=== PATIENT | male | born 1975 | race Caucasian/White ===

== ENCOUNTER 2019-03-14 10:13 | Inpatient (IN) | payer BC, OTHER ==
[2019-03-14] MEDS ORDERED: METOPROLOL TARTRATE 5 MG/5 ML INJ IV ONE ×2 (10:44→11:45)
[2019-03-14] MEDS ORDERED: METOPROLOL TAR 50 MG TAB ONE (10:44)
[2019-03-14 11:02] LABS: Absolute Lymphocytes (CBC) 1.3 K/uL (0.7-4.9); Basophils % 0.8 % (0-1.3); Hematocrit 47.6 % (39.6-49.0); Lymphocytes % 17.3 % (15.3-44.8); RBC Red Blood Cell Count 4.78 M/uL (4.33-5.43)
[2019-03-14 11:09] LABS: Protime INR 1.05
[2019-03-14 11:20] LABS: BUN Blood Urea Nitrogen 9 mg/dL (7-18); Bicarbonate 26 mmol/L (21-32); Glucose Level 89 mg/dL (74-106); Magnesium 2.4 mg/dL (1.8-2.4); NT PRO-BNP 1028 pg/mL (<125); Potassium 3.9 mmol/L (3.5-5.1); Sodium Level 141 mmol/L (136-145); Troponin (Emerg Dept Use Only) < 0.02 ng/mL (0.0-0.045)
[2019-03-14] MEDS ORDERED: ENOXAPARIN 100 MG/ML SYR SQ ONE (11:23)
[2019-03-14] MEDS ORDERED: ENOXAPARIN 30 MG/0.3 ML SQ ONE (11:24)
--- NOTE | 2019-03-14 11:33 | RAD REPORT ---
EXAM DESCRIPTION: [place] Single View03/14/2019 11:13 am CLINICAL HISTORY: Palpitations COMPARISON: 2014 FINDINGS: The lungs appear clear of acute infiltrate. The heart is mildly enlarged IMPRESSION: No acute abnormalities displayed
--- NOTE | 2019-03-14 11:58 | EDPHYS ---
Physician Documentation [facility] Name: Spenser Henriquez Age: 44 yrs Sex: Male : 1975 Arrival Date: 03/14/2019 Time: 10:15 Bed 15 Private MD: ED Physician Bucky Stinson HPI: 03/14 11:15 This 44 yrs old Male presents to ER via Ambulatory with complaints of heart rn racing. 11:15 The patient presents with a history of irregular heart beat, heart racing. Context: The rn symptoms occur at rest. Onset: The symptoms/episode began/occurred 3 day(s) ago. Modifying factors: The symptoms are aggravated by nothing. The symptoms are alleviated by nothing. Severity of symptoms: At their worst the symptoms were moderate in the emergency department the symptoms are unchanged. The patient has not experienced similar symptoms in the past. Reports noticed irregular heart rate and palpitations that began 3 days ago, mild sob, and fatigue. No known medical problems, doesn't take meds, never happened before. NO chest pain.. Historical: - Allergies: 10:20 No Known Allergies; la1 - Home Meds: 10:20 None [Active]; la1 - PMHx: 10:20 Hypertension; la1 - PSHx: 10:20 gastric sleeve; la1 - Immunization history:: Adult Immunizations up to date. - Social history:: Smoking status: Patient/guardian denies using tobacco. - Ebola Screening: : No symptoms or risks identified at this time. - Family history:: not pertinent. - Hospitalizations: : No recent hospitalization is reported. ROS: 11:15 Constitutional: Negative for fever, chills, and weight loss, Eyes: Negative for injury, rn pain, redness, and discharge, Neck: Negative for injury, pain, and swelling, Cardiovascular: Negative for chest pain, and edema, Respiratory: Negative for cough, wheezing, and pleuritic chest pain, Abdomen/GI: Negative for abdominal pain, nausea, vomiting, diarrhea, and constipation, MS/Extremity: Negative for injury and deformity, Skin: Negative for injury, rash, and discoloration, Neuro: Negative for headache, numbness, tingling, and seizure. Exam: 11:23 Constitutional: Overweight male, no acute distress Head/Face: Normocephalic, rn atraumatic. Eyes: Pupils equal round and reactive to light, extra-ocular motions intact. Lids and lashes normal. Conjunctiva and sclera are non-icteric and not injected. Cornea within normal limits. Periorbital areas with no swelling, redness, or edema. ENT: MMM Cardiovascular: Irregular rhythm, tachycardic, no murmur Respiratory: Lungs have equal breath sounds bilaterally, clear to auscultation. No increased work of breathing, no retractions or nasal flaring. Abdomen/GI: soft, non-tender MS/ Extremity: Pulses equal, no cyanosis. Neurovascular intact. Full, normal range of motion. Equal circumference. Neuro: Awake and alert, GCS 15, oriented to person, place, time, and situation. Cranial nerves II-XII grossly intact. Motor strength 5/5 in all extremities. Sensory grossly intact. Cerebellar exam normal. Vital Signs: 10:22 Pulse 155; Resp 16; Temp 98.0; Pulse Ox 98% on R/A; Weight 127.01 kg; Height 6 ft. 0 la1 in. (182.88 cm); 10:23 BP 136 / 100; la1 10:28 BP 144 / 117; Pulse 179; Resp 18; Temp 98.1(TE); Pulse Ox 97% on R/A; hj 10:42 BP 133 / 108; Pulse 158; Resp 18; Pulse Ox 100% on R/A; hj 10:50 BP 131 / 100; Pulse 135; Resp 18; Pulse Ox 100% on R/A; hj 11:06 BP 130 / 99; Pulse 149; Resp 18; Pulse Ox 100% on R/A; hj 11:29 BP 129 / 90; Pulse 148; Resp 18; Pulse Ox 100% on R/A; hj 11:41 BP 117 / 98; Pulse 135; Resp 18; Pulse Ox 100% on R/A; hj 11:47 BP 121 / 92; Pulse 130; Resp 18; Pulse Ox 100% on R/A; hj 12:48 BP 118 / 95; Pulse 142; Resp 18; Pulse Ox 98% on R/A; hj 13:41 BP 124 / 66; Pulse 142; Resp 18; Pulse Ox 96% on R/A; hj 10:22 Body Mass Index 37.97 (127.01 kg, 182.88 cm) la1 MDM: 10:28 Patient medically screened. rn 11:55 Differential diagnosis: arrythmia, afib with rvr. Data reviewed: vital signs, nurses rn notes, lab test result(s), EKG, radiologic studies, plain films, and as a result, I will admit patient. Counseling: I had a detailed discussion with the patient and/or guardian regarding: the historical points, exam findings, and any diagnostic results supporting the discharge/admit diagnosis, lab results, radiology results, the need for further work-up and treatment in the hospital. Response to treatment: the patient's symptoms have mildly improved after treatment, and as a result, I will admit patient. Admission orders: after a detailed discussion of the patient's condition and case, the admit orders are written by me. ED course: Pt with some improvement of HR down to 120s, from 170s, will admit for further rate control and cardiology consult. 03/14 10:41 Order name: Basic Metabolic Panel; Complete Time: : rn 03/14 10:41 Order name: CBC with Diff; Complete Time: rn 03/14 10:41 Order name: Magnesium; Complete Time: rn 03/14 10:41 Order name: NT PRO-BNP; Complete Time: rn 03/14 10:41 Order name: PT-INR; Complete Time: rn 03/14 10:41 Order name: Troponin (emerg Dept Use Only); Complete Time: rn 03/14 10:41 Order name: XRAY Chest (1 view); Complete Time: 11:38 rn 03/14 10:41 Order name: TSH; Complete Time: rn 03/14 10:41 Order name: T4 Free; Complete Time: rn 03/14 12:47 Order name: CT Head Brain wo Cont rn 03/14 13:22 Order name: CT EDMS 03/14 10:41 Order name: EKG; Complete Time: 10: rn 03/14 10:41 Order name: Cardiac monitoring; Complete Time: : rn 03/14 10:41 Order name: EKG - Nurse/Tech; Complete Time: 10: rn 03/14 10:41 Order name: IV Saline Lock; Complete Time: : rn 03/14 10:41 Order name: Labs collected and sent; Complete Time: : rn 03/14 10:41 Order name: O2 Per Protocol; Complete Time: 10:42 rn 03/14 10:41 Order name: O2 Sat Monitoring; Complete Time: 10:42 rn Administered Medications: 10:42 Drug: Lopressor 5 mg Route: IVP; Site: right antecubital; hj 10:42 Drug: Lopressor (metoprolol TARTRATE) 50 mg Route: PO; hj 11:29 Follow up: Response: No adverse reaction hj 10:50 Drug: Lopressor 5 mg Route: IVP; Site: right antecubital; hj 11:02 Drug: Lopressor 5 mg Route: IVP; Site: right antecubital; hj 11:29 Follow up: Response: No adverse reaction hj 11:20 Drug: Lovenox 1 mg/kg Route: Sub-Q; Site: abdomen; hj 11:34 Follow up: Response: No adverse reaction hj 11:43 Drug: Lopressor 5 mg Route: IVP; Site: right antecubital; hj 12:29 Follow up: Response: No adverse reaction hj 12:25 Drug: Zofran 4 mg Route: IVP; Site: right antecubital; hj 12:29 Follow up: Response: No adverse reaction hj 12:25 Drug: morphine 4 mg Route: IVP; Site: right antecubital; hj 12:30 Follow up: Response: No adverse reaction; Pain is decreased hj 12:48 Drug: Betapace 80 mg Route: PO; hj 12:51 Follow up: Response: No adverse reaction hj Disposition: 03/14/19 11:56 Hospitalization ordered by Isiah Borrego for Inpatient Admission. Preliminary diagnosis are Persistent atrial fibrillation, Atrial fibrillation with RVR. - Bed requested for Intensive Care Unit. - Status is Inpatient Admission. hj - Condition is Stable. - Problem is new. - Symptoms have improved. UTI on Admission? No Critical care time excluding procedures: 11:55 Critical care time: Bedside Care: 25 minutes, Family Intervention: 5 minutes. Total rn time: 30 minutes Signatures: Dispatcher [employer] EDEliana Alexander Roman, MD MD rn Attema, Lee, RN RN la1 Shade Mancilla RN RN hj Corrections: (The following items were deleted from the chart) 13:37 11:56 Hospitalization Ordered by Isiah Borrego DO for Inpatient Admission. Preliminary bd diagnosis is Persistent atrial fibrillation; Atrial fibrillation with RVR. Bed requested for Telemetry/MedSurg (Inpatient). Status is Inpatient Admission. Condition is Stable. Problem is new. Symptoms have improved. UTI on Admission? No. rn 14:32 13:37 03/14/2019 11:56 Hospitalization Ordered by Isiah Borrego DO for Inpatient hj Admission. Preliminary diagnosis is Persistent atrial fibrillation; Atrial fibrillation with RVR. Bed requested for Intensive Care Unit. Status is Inpatient Admission. Condition is Stable. Problem is new. Symptoms have improved. UTI on Admission? No. bd
--- NOTE | 2019-03-14 11:58 | ER ---
Nurse's Notes [facility] Name: Spenser Henriquez Age: 44 yrs Sex: Male : 1975 Arrival Date: 03/14/2019 Time: 10:15 Bed 15 Private MD: Diagnosis: Persistent atrial fibrillation;Atrial fibrillation with RVR Presentation: 03/14 10:20 Presenting complaint: Patient states: I have been having some pain and swelling under la1 my tongue, they did and EKG and it was abnormal so they sent me here, pt states having palpitations and fatigue at home. Transition of care: patient was not received from another setting of care. Onset of symptoms was March 14, 2019. Risk Assessment: Do you want to hurt yourself or someone else? Patient reports no desire to harm self or others. Initial Sepsis Screen: Does the patient meet any 2 criteria? No. Patient's initial sepsis screen is negative. Does the patient have a suspected source of infection? No. Patient's initial sepsis screen is negative. Care prior to arrival: None. 10:20 Method Of Arrival: Ambulatory la1 10:20 Acuity: DENAE 2 la1 Triage Assessment: 10:29 General: Appears in no apparent distress. uncomfortable, Behavior is calm, cooperative, hj appropriate for age. Pain: Complains of pain in chest. Historical: - Allergies: 10:20 No Known Allergies; la1 - Home Meds: 10:20 None [Active]; la1 - PMHx: 10:20 Hypertension; la1 - PSHx: 10:20 gastric sleeve; la1 - Immunization history:: Adult Immunizations up to date. - Social history:: Smoking status: Patient/guardian denies using tobacco. - Ebola Screening: : No symptoms or risks identified at this time. - Family history:: not pertinent. - Hospitalizations: : No recent hospitalization is reported. Screenin:28 Abuse screen: Denies threats or abuse. Denies injuries from another. Nutritional hj screening: No deficits noted. Tuberculosis screening: No symptoms or risk factors identified. Fall Risk None identified. Assessment: 10:19 General: Appears in no apparent distress. uncomfortable, Behavior is calm, cooperative, hj appropriate for age. Pain: Complains of pain in chest Pain radiates to back and left arm. Neuro: Level of Consciousness is awake, alert, obeys commands, Oriented to person, place, time, situation, Appropriate for age. Cardiovascular: Capillary refill < 3 seconds Patient's skin is warm and dry. Respiratory: Airway is patent Respiratory effort is even, unlabored, Respiratory pattern is regular, symmetrical. GI: No signs and/or symptoms were reported involving the gastrointestinal system. : No signs and/or symptoms were reported regarding the genitourinary system. EENT: No signs and/or symptoms were reported regarding the EENT system. Derm: No signs and/or symptoms reported regarding the dermatologic system. Musculoskeletal: No signs and/or symptoms reported regarding the musculoskeletal system. 11:19 Reassessment: Patient and/or family updated on plan of care and expected duration. Pain hj level reassessed. Patient is alert, oriented x 3, equal unlabored respirations, skin warm/dry/pink. awaiting results and POC:. 12:00 Reassessment: complaints of pain; MD notified with orders;. hj 13:41 Reassessment: Patient and/or family updated on plan of care and expected duration. Pain hj level reassessed. Patient is alert, oriented x 3, equal unlabored respirations, skin warm/dry/pink. awaiting for room placement;. Vital Signs: 10:22 Pulse 155; Resp 16; Temp 98.0; Pulse Ox 98% on R/A; Weight 127.01 kg; Height 6 ft. 0 la1 in. (182.88 cm); 10:23 BP 136 / 100; la1 10:28 BP 144 / 117; Pulse 179; Resp 18; Temp 98.1(TE); Pulse Ox 97% on R/A; hj 10:42 BP 133 / 108; Pulse 158; Resp 18; Pulse Ox 100% on R/A; hj 10:50 BP 131 / 100; Pulse 135; Resp 18; Pulse Ox 100% on R/A; hj 11:06 BP 130 / 99; Pulse 149; Resp 18; Pulse Ox 100% on R/A; hj 11:29 BP 129 / 90; Pulse 148; Resp 18; Pulse Ox 100% on R/A; hj 11:41 BP 117 / 98; Pulse 135; Resp 18; Pulse Ox 100% on R/A; hj 11:47 BP 121 / 92; Pulse 130; Resp 18; Pulse Ox 100% on R/A; hj 12:48 BP 118 / 95; Pulse 142; Resp 18; Pulse Ox 98% on R/A; hj 13:41 BP 124 / 66; Pulse 142; Resp 18; Pulse Ox 96% on R/A; hj 10:22 Body Mass Index 37.97 (127.01 kg, 182.88 cm) la1 ED Course: 10:15 Patient arrived in ED. cf2 10:20 Arm band placed on right wrist. la1 10:21 Triage completed. la1 10:24 Shade Mancilla, AARON is Primary Nurse. hj 10:28 Bucky Stinson MD is Attending Physician. rn 10:29 Patient has correct armband on for positive identification. Placed in gown. Bed in low hj position. Call light in reach. Side rails up X 1. 10:41 EKG done, by technicians and trades workers. reviewed by Bucky Stinson MD. sm3 10:41 No provider procedures requiring assistance completed. Initial lab(s) drawn, by wi, hj sent to lab. Inserted saline lock: 18 gauge in right antecubital area, using aseptic technique. Blood collected. 11:07 X-ray completed. Portable x-ray completed in exam room. Patient tolerated procedure sw well. 11:12 XRAY Chest (1 view) In Process Unspecified. EDMS 11:56 Isiah Borrego DO is Hospitalizing Provider. rn Administered Medications: 10:42 Drug: Lopressor 5 mg Route: IVP; Site: right antecubital; hj 10:42 Drug: Lopressor (metoprolol TARTRATE) 50 mg Route: PO; hj 11:29 Follow up: Response: No adverse reaction hj 10:50 Drug: Lopressor 5 mg Route: IVP; Site: right antecubital; hj 11:02 Drug: Lopressor 5 mg Route: IVP; Site: right antecubital; hj 11:29 Follow up: Response: No adverse reaction hj 11:20 Drug: Lovenox 1 mg/kg Route: Sub-Q; Site: abdomen; hj 11:34 Follow up: Response: No adverse reaction hj 11:43 Drug: Lopressor 5 mg Route: IVP; Site: right antecubital; hj 12:29 Follow up: Response: No adverse reaction hj 12:25 Drug: Zofran 4 mg Route: IVP; Site: right antecubital; hj 12:29 Follow up: Response: No adverse reaction 12:25 Drug: morphine 4 mg Route: IVP; Site: right antecubital; 12:30 Follow up: Response: No adverse reaction; Pain is decreased 12:48 Drug: Betapace 80 mg Route: PO; 12:51 Follow up: Response: No adverse reaction Outcome: 11:56 Decision to Hospitalize by Provider. rn 13:51 Admitted to ICU accompanied by nurse, accompanied by tech, family with patient, via stretcher, room 1, on monitor, Report called to AARON Andrade 13:51 Condition: stable 13:51 Instructed on the need for admit, Demonstrated understanding of instructions. 14:32 Patient left the ED. Signatures: Dispatcher [employer] EDBucky Sanders MD MD rn Attema, Lee, RN RN la1 Warren, Shannon sw Joaquin, Henry, RN RN hj Montes, Shakira 3 Emmanuel Calles 2
[2019-03-14] MEDS ORDERED: MORPHINE 4 MG/ML SYR ONE (12:24)
[2019-03-14] MEDS ORDERED: ONDANSETRON 4 MG/2 ML VIAL ONE (12:24)
[2019-03-14] MEDS ORDERED: SOTALOL HCL 80 MG TAB ONE (12:49)
--- NOTE | 2019-03-14 13:11 | P.HP ---
Certification for Inpatient Patient admitted to: Inpatient With expected LOS: >2 Midnights Patient will require the following post-hospital care: None Practitioner: I am a practitioner with admitting privileges, knowledge of patient current condition, hospital course, and medical plan of care. Services: Services provided to patient in accordance with Admission requirements found in Title 42 Section 412.3 of the Code of Federal Regulations Patient History Date of Service: 03/14/19 Primary Care Provider: Dr. Benito Reason for admission: Palpitations, left facial numbness History of Present Illness: 44-year-old male presented to the emergency room with palpitations and left facial numbness. Patient reports he started to have palpitations 3 days ago. It was associated with some shortness of breath and chest pressure. Patient also reported some left facial numbness. Patient denies any slurred speech. Denies upper and lower extremity weakness. He had gone to a [place] on Tuesday. He felt very tired thereafter. He was seen by his PCP today. After his evaluation , He was sent to the ER for further evaluation. Patient has reported some palpitations over the past 6 months. Patient with history of hypertension but does not take any medication regularly. Other medical problems include obstructive sleep apnea, former tobacco use, alcohol use, and GERD. In the ER patient evaluated. Patient was found to have atrial fibrillation with RVR. Rate was around 180. Patient received several doses of Lopressor with improvement of heart rate to about 130. CBC, BMP unremarkable. Initial cardiac enzymes negative. BNP 1200 tsh and free T4 within normal range. Chest x-ray unremarkable. Patient admitted to ICU for further evaluation and treatment. When I saw the patient in the ER, heart rate around 130. Patient does not appear to be any significant distress. Case discussed with cardiology. Will start Betapace and anti coagulation therapy. Will order CT head due to left facial weakness. Home medications list reviewed: Yes - Past Medical/Surgical History Diabetic: No -: Hypertension -: Former tobacco use -: Alcohol use -: GERD -: Obstructive sleep apnea -: History of gastric sleeve -: Obesity -: Gastric sleeve -: Cholecystectomy Psychosocial/ Personal History: Patient has a girlfriend. He has 3 children. He works at [employer]. - Family History Father -: Heart disease, Hypertension, Other (see notes) (History of CABG with pacemaker) Mother -: Other (see notes) (Anxiety) - Social History Smoking Status: Former smoker Alcohol use: Yes CD- Drugs: No Caffeine use: Yes Place of Residence: Home Review of Systems General: Weakness, Malaise, As per HPI Eyes: Unremarkable ENT: Unremarkable Respiratory: Shortness of Breath, As per HPI Cardiovascular: Chest Pain, Palpitations, Edema, As per HPI Gastrointestinal: Unremarkable Genitourinary: Unremarkable Musculoskeletal: Pedal edema, As per HPI Integumentary: Unremarkable Neurological: Weakness, Numbness, As per HPI Lymphatics: Unremarkable Physical Examination - Physical Exam General: Alert, In no apparent distress, Oriented x3, Cooperative HEENT: Atraumatic, Normocephalic, PERRLA, Mucous membr. moist/pink, Other ( Patient reports numbness to the left side of the face.) Neck: Supple, No Thyromegaly Respiratory: Clear to auscultation bilaterally, Normal air movement Cardiovascular: Irregular heart rate/rhythm (Atrial fibrillation with rate around 130) Gastrointestinal: Normal bowel sounds, Soft and benign, Non-distended, No tenderness, No masses, No rebound, No guarding Musculoskeletal: No erythema, No tenderness, No warmth Integumentary: No erythema, No warmth, No cyanosis, Tenderness/swelling (1+ pitting edema to the lower extremities) Neurological: Normal speech, Normal strength at 5/5 x4 extr, Normal tone, Normal affect - Studies Laboratory Data (last 24 hrs) 03/14/19 10:42: PT 12.4, INR 1.05 03/14/19 10:42: WBC 7.7, Hgb 15.9, Hct 47.6, Plt Count 257 03/14/19 10:42: Sodium 141, Potassium 3.9, BUN 9, Creatinine 0.91, Glucose 89, Magnesium 2.4 Assessment and Plan - Plan Impression: Palpitations and left facial numbness secondary to new onset atrial fibrillation with RVR Hypertension GERD Alcohol use Former tobacco use Obstructive sleep apnea Obesity with history of gastric sleeve Plan: Palpitations and left facial numbness secondary to new onset atrial fibrillation with RVR: Patient will be admitted to ICU. Case discussed at length with cardiology. Will start Betapace 80 mg twice daily. Will also start anti coagulation therapy-Lovenox at 1 milligram/kilogram subcu twice daily. Will order echocardiogram further evaluate. Will also order carotid Doppler, CT head, stroke protocol MRI due to his left facial numbness. Will continue monitor on telemetry and cardiac enzymes. Hopefully patient will convert on Betapace. Cardiology will consider cardioversion tomorrow if patient remains in atrial fibrillation. Anticipate discharge in the next 48 hr pending clinical improvement and clearance by Cardiology. Hypertension: Will need to monitor closely. Patient on Betapace. Patient previously taking medication but not on a regular basis. GERD: Will start Protonix. Alcohol use: Alcohol cessation education will be provided. Former tobacco use: Continue tobacco cessation. Obstructive sleep apnea: Patient should have repeat sleep study as an outpatient to further evaluate. Obesity with history of gastric sleeve: Will calculate BMI. Will address lifestyle modification education. Discharge Plan: Home Plan to discharge in: 72 Hours - Advance Directives Does patient have a Living Will: No Does patient have a Durable POA for Healthcare: No - Code Status/Comfort Care Code Status Assessed: Yes (Patient is full code) Time Spent Managing Pts Care (In Minutes): 65
--- NOTE | 2019-03-14 13:13 | RAD REPORT ---
EXAM DESCRIPTION: CT - Head Brain Wo Cont - 03/14/2019 1:00 pm CLINICAL HISTORY: afib, paresthesias COMPARISON: No comparisons TECHNIQUE: All CT scans are performed using dose optimization technique as appropriate and may inclu de automated exposure control or mA/KV adjustment according to patient size. FINDINGS: No intracranial hemorrhage, hydrocephalus or extra-axial fluid collection.No areas of brai n edema or evidence of midline shift. Prominent rounded soft tissue density lesion within sphenoid sinuses noted measuring 2.4 cm The shira rium is intact. IMPRESSION: No acute intracranial abnormality. 2.4 cm soft tissue attenuation lesion in the right aspect of the sphenoid sinus may represent a mucoc venkatesh.
[2019-03-14] MEDS ORDERED: ACETAMINOPHEN 650MG/RECT SUPP PR PRN (13:59)
[2019-03-14] MEDS ORDERED: ACETAMINOPHEN 500 MG TAB PO PRN (13:59)
[2019-03-14] MEDS ORDERED: ONDANSETRON 4 MG/2 ML VIAL IV PRN (13:59)
--- NOTE | 2019-03-14 14:52 | EKG ---
Test Date: 2019-03-14 Test Time: 10:31:58 Branch Employment Coordinator: NETTIE-Will MEASUREMENT RESULTS: Intervals: Rate: 146 MN: QRSD: 84 QT: 302 QTc: 470 [place]: P: MN: QRS: 60 T: 28 INTERPRETIVE STATEMENTS: Atrial fibrillation with rapid ventricular response Abnormal ECG No previous ECG available for comparison Electronically Signed On 03-14-19 14:51:47 CDT by Khanh Barrios
[2019-03-14] MEDS ORDERED: NITROGLYCERIN 0.4 MG/TAB SL PRN (16:53)
[2019-03-14] MEDS: MORPHINE 2 MG/ML SYR IV PRN ×2 (17:06→22:54)
[2019-03-14] MEDS: SOTALOL HCL 80 MG TAB PO SCH (17:11)
[2019-03-14] MEDS ORDERED: SOTALOL HCL 80 MG TAB PO SCH (18:00)
--- NOTE | 2019-03-14 19:45 | CON ---
Reason For Consult: Atrial fibrillation. History Of Present Illness: Mr. Henriquez is a 44. He has been feeling ill for several weeks, perhaps m onths. He has gained about 20 pounds, has a new job and has felt his heart racing, had sweating spel ls, lightheaded spells. He went to see the doctor because the area under his tongue felt irritated. Vital signs were taken. His heart rate was in the 150s. It was irregular. He was hypertensive and he was sent to the ER there. There, he was found to be in atrial fib. Mr. Henriquez has not had atrial fib before. He has no history of diabetes, hypertension, or dyslipidemia. He takes no home medicat ions. He reports no allergies. He uses tobacco. He uses [place] over [place]. He had a gastric s leeve surgery about a decade ago. He went from 280 down to about 250, now his weight is 276. Physical Examination: Vital Signs: He is 6 feet tall, 276 pounds. HEENT: Normal. Lungs: Clear. Heart: Rapid, very irregular heart beat, heart rate right at 150. Neck: Carotids, no bruit. Extremities: Palpable distal pulses. Mild edema. No cyanosis or clubbing. Diagnostic Studies: His electrocardiogram shows atrial fib, heart rate 146. No old EKGs. Impression: The patient has probably been in atrial fibrillation for several weeks, if not months, a nd doing an emergency cardioversion would put him at significant risk of a stroke. We need to fully anticoagulate him, give him enough beta blockers so that his heart rate slows, then he could resume o utpatient life and wait 3 weeks and undergo a cardioversion or alternatively go up to [facility] where the transesophageal echocardiogram could be done and a cardioversion if it is negative for le ft atrial appendage thrombus. At some point, he should have an echo and stress test. I would rather see the echocardiogram done when his heart rate is a little slower than to do it emergently right no w. We will increase his Betapace to 120 b.i.d. Continue enoxaparin and we will see what shape he is in tomorrow, perhaps he could be discharged for outpatient care. EDDIE/LAURA Voice ID: [id number] Report ID: [id number]
[2019-03-14 19:55] LABS: CKMB Creatine Kinase MB 1.5 ng/mL (0.3-3.6); Creatine Phosphokinase 96 U/L (39-308); Troponin I < 0.02 ng/mL (0.0-0.045)
--- NOTE | 2019-03-14 20:10 | RAD REPORT ---
EXAM DESCRIPTION: USCarotid Artery Bilateral03/14/2019 4:02 pm CLINICAL HISTORY: Numbness COMPARISON: None FINDINGS: The velocity of the right internal carotid artery equals 56 cm/sec. The right ICA/CCA rati o .8 The velocity of the left internal carotid artery equals 45 cm/sec. The left ICA/CCA ratio .8 Mild plaque is present within the carotid arteries. The vertebral arteries demonstrate antegrade flow IMPRESSION: Mild plaque within the carotid arteries without evidence of a hemodynamically significan t stenosis NASCET criteria used. Mild 0-49% stenosis Moderate 50-69% stenosis Severe 70-99% stenosis
[2019-03-14] MEDS: ATORVASTATIN 40 MG TAB PO SCH (20:32)
[2019-03-14] MEDS: LORAZEPAM 0.5 MG TABLET PO PRN (20:32)
[2019-03-14] MEDS ORDERED: METOPROLOL TARTRATE 5 MG/5 ML INJ IV STA (21:50)
[2019-03-14] MEDS ORDERED: DIGOXIN 0.25 MG/ML AMP IV ONE (22:14)
--- NOTE | 2019-03-14 22:18 | EKG ---
Test Date: 2019-03-14 Test Time: 11:29:57 Automotive Electrician Helper: NETTIE MEASUREMENT RESULTS: Intervals: Rate: 143 PA: QRSD: 88 QT: 306 QTc: 472 [place]: P: PA: QRS: 64 T: 26 INTERPRETIVE STATEMENTS: Atrial fibrillation with rapid ventricular response Nonspecific T wave abnormality, probably digitalis effect Abnormal ECG Compared to ECG 03/14/2019 10:31:58 T-wave abnormality now present Electronically Signed On 03-14-19 22:16:55 CDT by Khanh Barrios
[2019-03-15 05:28] LABS: Absolute Lymphocytes (CBC) 1.7 K/uL (0.7-4.9); Basophils % 1.2 % (0-1.3); Lymphocytes % 24.9 % (15.3-44.8); MPV 8.3 fL (7.6-11.3); RBC Red Blood Cell Count 4.32 M/uL (4.33-5.43)
[2019-03-15 05:49] LABS: Magnesium 2.4 mg/dL (1.8-2.4); Potassium 3.9 mmol/L (3.5-5.1)
[2019-03-15 05:57] LABS: CKMB Creatine Kinase MB < 1.0 ng/mL (0.3-3.6); Creatine Phosphokinase 70 U/L (39-308); Troponin I < 0.02 ng/mL (0.0-0.045)
[2019-03-15] MEDS: PANTOPRAZOLE 40MG TABLET PO SCH (07:07)
[2019-03-15] MEDS: SOTALOL HCL 80 MG TAB PO SCH ×2 (07:07→17:18)
[2019-03-15] MEDS ORDERED: LORazepam 2 MG/ML VIAL IV ONE (07:35)
[2019-03-15] MEDS ORDERED: LORazepam 2 MG/ML VIAL ONE (07:36)
[2019-03-15] MEDS ORDERED: POTASSIUM CL SA 10 MEQ TAB PO ONE (09:00)
[2019-03-15] MEDS ORDERED: DIGOXIN 0.25 MG/ML AMP IV ONE (09:03)
--- NOTE | 2019-03-15 10:34 | RAD REPORT ---
EXAM DESCRIPTION: MRI - Brain W/Wo Cont - 03/15/2019 8:49 am CLINICAL HISTORY: Left facial numbness, suspected CVA COMPARISON: CT head March 14 TECHNIQUE: Sagittal and axial T1-weighted images were obtained. Axial PD/heavily T2-weighted and T2- FLAIR images were obtained along with axial DWI/ADC mapping sequences. Coronal heavily T2 weighted s equence obtained. Axial and coronal post-contrast T1-weighted images were also obtained. A 20 ml Mul tihance contrast following utilized. FINDINGS: No intracranial hemorrhage is present. No brain parenchymal mass or edema. No midline shif t. Diffusion-weighted imaging shows no acute infarction change. No cortical edema or sulcal effacemen t. There is no atrophy or chronic ischemic change present. Signal voids are seen as a normal finding in the major intracranial vessels. Post-contrast imaging shows no brain parenchymal or dural abnormal enhancement. No globe or orbital c ontent abnormality seen. Mastoid air cells are clear. No sella or supra sella abnormality identified. A 2.5 centimeter round masses present filling and exp anding slightly the right side of the sphenoid sinus. Size and location match the prior day CT study. This mass shows a homogeneous hyperintense T1 signal pattern. Postcontrast T1 images showed no enhan cement of the central or peripheral margins. This is most likely a mucocele. Chronic sinusitis change s are seen in the jamil of the sphenoid sinus. Mucosal thickening or retention cyst changes are seen along the floor of each maxillary sinus. No air-fluid levels present. IMPRESSION: No infarction changes are present. No acute intracranial findings are identifiable. Approximately 2.5 centimeter mass filling and enlarging the right side sphenoid sinus with evidence f or chronic changes to the sinus jamil. 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
--- NOTE | 2019-03-15 10:37 | RAD REPORT ---
EXAM DESCRIPTION: MRI - MRA Head Wo Cont - 03/15/2019 8:49 am CLINICAL HISTORY: CVA findings, left-sided facial numbness COMPARISON: None. TECHNIQUE: Axial and coronal 3D [id number] image acquisition was performed. 3D rotational images were generated with source and reconstruction images reviewed. Horizontal and vertical axis rotation al views generated using MIP protocol. FINDINGS: Mass in the sphenoid sinus is detailed on separate MRI brain and CT head studies. No aneurysm or vascular malformation. Right vertebral artery is dominant. Patient has small distal left vertebral artery. No vertebrobasila r abnormality seen. Both posterior cerebral arteries are unremarkable. Patient has a persistent right posterior communicating artery. Anterior communicating artery is present. Left A1 CHIOMA segment is sli ghtly small believed to be normal variant. No anterior cerebral artery suspicious finding. No middle cerebral artery abnormality. No vasculitis or other suspicious vascular findings. IMPRESSION: Negative MRA head examination for acute or suspicious finding.
--- NOTE | 2019-03-15 10:39 | RAD REPORT ---
EXAM DESCRIPTION: MRI - MRA Neck W/Wo Cont - 03/15/2019 8:49 am CLINICAL HISTORY: CVA symptoms, left-sided facial numbness COMPARISON: None. TECHNIQUE: Axial and coronal 3D [id number]-gxfuoh image acquisition was performed. 3D rotational images were generated with source and reconstruction images reviewed. Horizontal and vertical axis rotation al views generated using MIP protocol. A 20 milliliter MultiHance contrast volume was utilized. FINDINGS: Aortic arch is 3 vessel configuration with no stenosis. The bilateral common carotid, inte rnal carotid and external carotid arteries show no stenosis or focal abnormalities. No dissection or vasculitis findings. Right vertebral artery is dominant. No focal vertebral artery abnormality. Verte bral artery origins are unremarkable. IMPRESSION: Negative MRA neck examination.
--- NOTE | 2019-03-15 11:59 | P.PN ---
Subjective Date of Service: 03/15/19 Primary Care Provider: Dr. Benito Chief Complaint: Palpitations, left facial numbness Subjective: Improving, Other (Patient still reported some chest pain Overnite and required morphine.) Physical Examination - Vital Signs Temperature: 97.3 F Blood Pressure: 104/66 Pulse: 67 Respirations: 17 Pulse Ox (%): 98 - Physical Exam General: Alert, In no apparent distress, Oriented x3, Cooperative HEENT: Atraumatic Neck: Supple Respiratory: Clear to auscultation bilaterally, Normal air movement Cardiovascular: Irregular heart rate/rhythm (Patient remains in and out of AFib. Rate much improved.) Gastrointestinal: Normal bowel sounds, No tenderness, No masses, No rebound, No guarding Musculoskeletal: No erythema, No tenderness, No warmth Integumentary: No erythema, No warmth, No cyanosis Neurological: Normal speech, Normal strength at 5/5 x4 extr, Normal tone, Normal affect - Studies Medications List Reviewed: Yes Assessment & Plan Discharge Plan: Home Plan to discharge in: 48 Hours Physician Review Additional Text: Impression: Palpitations and left facial numbness secondary to new onset atrial fibrillation with RVR Hypertension GERD Alcohol use Former tobacco use Obstructive sleep apnea Obesity, BMI 37.5 with history of gastric sleeve Plan: Palpitations and left facial numbness secondary to new onset atrial fibrillation with RVR: Patient has done well. Betapace increased to 120 twice daily by Cardiology. Patient given digoxin today. Patient in and out of atrial fibrillation but rate improved. So far MRA neck, MRA brain, MRI brain unremarkable for CVA. MRI did show 2.5 cm chronic mucocele to the sphenoid sinus. Carotid Doppler showed mild carotid disease without stenosis. Patient remains on full-dose anti coagulation therapy-Lovenox. Will transfer patient to the floor. Case discussed at length with cardiology. Will order CT chest angiogram to evaluate chest pain further. So far cardiac enzymes unremarkable. Echocardiogram done. Pending results. Will discuss further with cardiology. Patient likely on stable for cardioversion. Anticipate discharge within the next 1-2 days with clinical improvement and stability. Hypertension: Overall stable. Patient on Betapace. GERD: Continue Protonix. Alcohol use: Alcohol cessation education will be provided. Former tobacco use: Continue tobacco cessation. Obstructive sleep apnea: Patient should have repeat sleep study as an outpatient to further evaluate. Obesity, BMI 37.5 with history of gastric sleeve: Continue to address lifestyle modification education. Time Spent Managing Pts Care (In Minutes): 55
[2019-03-15] MEDS: MORPHINE 2 MG/ML SYR IV PRN ×3 (12:20→21:04)
--- NOTE | 2019-03-15 13:49 | RAD REPORT ---
EXAM DESCRIPTION: CT - Chest For Pe Angio - 03/15/2019 1:20 pm CLINICAL HISTORY: Shortness of breath, atrial fibrillation COMPARISON: Chest film March 14 TECHNIQUE: Dynamically enhanced 3 mm thick images of the chest were obtained during administration o f approximately 150mL Isovue 370 IV contrast. Coronal and oblique MIP reconstruction images were gene rated and reviewed. Exam utilizes a protocol to evaluate the pulmonary arterial tree. All CT scans are performed using dose optimization technique as appropriate and may include automated exposure control or mA/KV adjustment according to patient size. FINDINGS: No pulmonary emboli are identified. The aorta as imaged shows no acute or suspicious finding. No pericardial thickening or effusion. Bilateral posterior gutter atelectasis changes. No pleural effusion or pleural thickening. Heart size is upper normal. No pericardial thickening or effusion. Interstitial pattern is not outside of range of normal. No mediastinal or hilar suspicious masses. No chest wall masses or abnormal axillary lymphadenopathy. IMPRESSION: No pulmonary emboli identified. No other significant or suspicious findings.
[2019-03-15] MEDS: LORAZEPAM 0.5 MG TABLET PO PRN (15:05)
--- NOTE | 2019-03-15 15:16 | ECHO ---
HEIGHT: 6 ft 0 in WEIGHT: 276 lb 5 oz DATE OF STUDY: 03/15/[address]: Khanh Barrios MD 2-DIMENSIONAL: YES M.MODE: YES DOPPLER: YES COLOR FLOW: YES TDS: PORTABLE: DEFINITY: BUBBLE STUDY: DIAGNOSIS: AFIB WITH RVR CARDIAC HISTORY: CATHERIZATION: NO SURGERY: NO PROSTHETIC VALVE: NO PACEMAKER: NO MEASUREMENTS (cm) DIASTOLIC (NORMALS) SYSTOLIC (NORMALS) IVSd 1.1 (0.6-1.2) LA Diam 3.7 (1.9-4.0) LVEF 60% LVIDd 4.6 (3.5-5.7) LVIDs 2.8 (2.0-3.5) %FS % LVPWd 1.1 (0.6-1.2) Ao Diam 3.5 (2.0-3.7) 2 DIMENSIONAL ASSESSMENT: RIGHT ATRIUM: NORMAL LEFT ATRIUM: NORMAL RIGHT VENTRICLE: NORMAL LEFT VENTRICLE: NORMAL TRICUSPID VALVE: NORMAL MITRAL VALVE: NORMAL PULMONIC VALVE: NORMAL AORTIC VALVE: NORMAL PERICARDIAL EFFUSION: NONE AORTIC ROOT: NORMAL LEFT VENTRICULAR WALL MOTION: NORMAL DOPPLER/COLOR FLOW: MILD TRICUSPID REGURGITATION. COMMENTS: MILD TRICUSPID REGURGITATION. NO LEFT VENTRICULAR EJECTION FRACTION AND SIZE. NO THROMBUS. AFIB 110-120. EF NORMAL 60%. TECHNOLOGIST: FOUZIA BAEZA
[2019-03-15] MEDS ORDERED: NITROGLYCERIN 0.1 MG/HR (2.5 MG) PATCH TD ONE (20:06)
[2019-03-15] MEDS: ATORVASTATIN 40 MG TAB PO SCH (21:06)
--- NOTE | 2019-03-15 22:10 | PN ---
Date of Progress Note: 03/15/2019 Mr. Henriquez is 44, came in with atrial fibrillation, new onset, was seen by Dr. Barrios, was placed on B etapace 120 mg twice a day, Xarelto was given, digoxin 1 dose. This morning, he was in normal sinus rhythm. However, he was in and out of fibrillation at a rate of 120. A 0.5 mg of digoxin additional to his earlier dose was given. Betapace was continued 120 b.i.d. along with Xarelto. He continues to have some midepigastric pain and palpitation, probably secondary to atrial fibrillation. He has a n MRI of his head pending. A CT of his chest pending. Echocardiogram is pending. Mr. Henriquez's atria l fibrillation has been going on for quite a while, and it would be better to wait for cardioversion electrically for at least 3 weeks after anticoagulation. From my standpoint, he can certainly go to telemetry. I will make an arrangement eventually for an outpatient stress test in the near future. Case was discussed with Dr. Borrego. FOREST/LAURA Voice ID: [id number] Report ID: [id number]
[2019-03-16 06:24] LABS: Absolute Lymphocytes (CBC) 1.3 K/uL (0.7-4.9); Basophils % 0.9 % (0-1.3); Hematocrit 42.6 % (39.6-49.0); Lymphocytes % 21.8 % (15.3-44.8); MPV 7.8 fL (7.6-11.3)
[2019-03-16] MEDS: SOTALOL HCL 80 MG TAB PO SCH (06:25)
[2019-03-16] MEDS: PANTOPRAZOLE 40MG TABLET PO SCH (06:26)
--- NOTE | 2019-03-16 07:14 | EKG ---
Test Date: 2019-03-15 Test Time: 20:32:37 Neuroscience Director Na: RT MEASUREMENT RESULTS: Intervals: Rate: 78 GA: 146 QRSD: 84 QT: 424 QTc: 483 [place]: P: 67 GA: 146 QRS: 3 T: 74 INTERPRETIVE STATEMENTS: Normal sinus rhythm Right atrial enlargement Nonspecific T wave abnormality Prolonged QT Abnormal ECG Compared to ECG 03/14/2019 11:29:57 Atrial abnormality now present Prolonged QT interval now present Atrial fibrillation no longer present T-wave abnormality still present Electronically Signed On 03-16-19 07:13:17 CDT by Nahun Ng
[2019-03-16 07:24] LABS: Magnesium 2.6 mg/dL (1.8-2.4); Potassium 4.3 mmol/L (3.5-5.1)
--- NOTE | 2019-03-16 09:41 | P.DS ---
Admission Date: 03/14/19 Discharge Date: 03/16/19 Primary Care Provider: Dr. Benito Disposition: ROUTINE DISCHARGE Discharge Condition: GOOD Reason for Admission: Palpitations, left facial numbness Consultations: Cardiology-Dr. Ng/Dr. Barrios Procedures: ECHO: EF 60% LEFT VENTRICULAR WALL MOTION: NORMAL DOPPLER/COLOR FLOW: MILD TRICUSPID REGURGITATION. COMMENTS: MILD TRICUSPID REGURGITATION. NO LEFT VENTRICULAR EJECTION FRACTION AND SIZE. NO THROMBUS. AFIB 110-120. EF NORMAL 60%. MRI Brain: FINDINGS: No intracranial hemorrhage is present. No brain parenchymal mass or edema. No midline shift. Diffusion-weighted imaging shows no acute infarction change. No cortical edema or sulcal effacement. There is no atrophy or chronic ischemic change present. Signal voids are seen as a normal finding in the major intracranial vessels. Post-contrast imaging shows no brain parenchymal or dural abnormal enhancement. No globe or orbital content abnormality seen. Mastoid air cells are clear. No sella or supra sella abnormality identified. A 2.5 centimeter round masses present filling and expanding slightly the right side of the sphenoid sinus. Size and location match the prior day CT study. This mass shows a homogeneous hyperintense T1 signal pattern. Postcontrast T1 images showed no enhancement of the central or peripheral margins. This is most likely a mucocele. Chronic sinusitis changes are seen in the jamil of the sphenoid sinus. Mucosal thickening or retention cyst changes are seen along the floor of each maxillary sinus. No air-fluid levels present. IMPRESSION: No infarction changes are present. No acute intracranial findings are identifiable. Approximately 2.5 centimeter mass filling and enlarging the right side sphenoid sinus with evidence for chronic changes to the sinus jamil. 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 MRA Brain: FINDINGS: Mass in the sphenoid sinus is detailed on separate MRI brain and CT head studies. No aneurysm or vascular malformation. Right vertebral artery is dominant. Patient has small distal left vertebral artery. No vertebrobasilar abnormality seen. Both posterior cerebral arteries are unremarkable. Patient has a persistent right posterior communicating artery. Anterior communicating artery is present. Left A1 CHIOMA segment is slightly small believed to be normal variant. No anterior cerebral artery suspicious finding. No middle cerebral artery abnormality. No vasculitis or other suspicious vascular findings. IMPRESSION: Negative MRA head examination for acute or suspicious finding. MRA neck: FINDINGS: Aortic arch is 3 vessel configuration with no stenosis. The bilateral common carotid, internal carotid and external carotid arteries show no stenosis or focal abnormalities. No dissection or vasculitis findings. Right vertebral artery is dominant. No focal vertebral artery abnormality. Vertebral artery origins are unremarkable. IMPRESSION: Negative MRA neck examination. Carotid doppler: FINDINGS: The velocity of the right internal carotid artery equals 56 cm/sec. The right ICA/CCA ratio .8 The velocity of the left internal carotid artery equals 45 cm/sec. The left ICA/ CCA ratio .8 Mild plaque is present within the carotid arteries. The vertebral arteries demonstrate antegrade flow IMPRESSION: Mild plaque within the carotid arteries without evidence of a hemodynamically significant stenosis CT chest: FINDINGS: No pulmonary emboli are identified. The aorta as imaged shows no acute or suspicious finding. No pericardial thickening or effusion. Bilateral posterior gutter atelectasis changes. No pleural effusion or pleural thickening. Heart size is upper normal. No pericardial thickening or effusion. Interstitial pattern is not outside of range of normal. No mediastinal or hilar suspicious masses. No chest wall masses or abnormal axillary lymphadenopathy. IMPRESSION: No pulmonary emboli identified. No other significant or suspicious findings. Medical Problem List: Palpitations and left facial numbness secondary to new onset atrial fibrillation with RVR GERD Alcohol use Tobacco use Obstructive sleep apnea Obesity, BMI 37.5 with history of gastric sleeve Brief History of Present Illness: 44-year-old male presented to the emergency room with palpitations and left facial numbness. Patient reports he started to have palpitations 3 days ago. It was associated with some shortness of breath and chest pressure. Patient also reported some left facial numbness. Patient denies any slurred speech. Denies upper and lower extremity weakness. He had gone to a [employer] on Tuesday. He felt very tired thereafter. He was seen by his PCP today. After his evaluation , He was sent to the ER for further evaluation. Patient has reported some palpitations over the past 6 months. Patient with history of hypertension but does not take any medication regularly. Other medical problems include obstructive sleep apnea, former tobacco use, alcohol use, and GERD. In the ER patient evaluated. Patient was found to have atrial fibrillation with RVR. Rate was around 180. Patient received several doses of Lopressor with improvement of heart rate to about 130. CBC, BMP unremarkable. Initial cardiac enzymes negative. BNP 1200 tsh and free T4 within normal range. Chest x-ray unremarkable. Patient admitted to ICU for further evaluation and treatment. When I saw the patient in the ER, heart rate around 130. Patient does not appear to be any significant distress. Case discussed with cardiology. Will start Betapace and anti coagulation therapy. Will order CT head due to left facial weakness. Hospital Course: Patient presented with SOB/CP/Palpitations secondary to New Onset Atrial Fibrillation with RVR. Patient was seen and treated by Cardiology. ECHO/MRI Brain/MRA Brain/MRA Neck/CT chest Angiogram was unremarkable for CVA/PE. Patient now in normal sinus rythym. Discharge patient has done well. Patient without significant chest pain or shortness of breath. At Discharge, he will continue with Betapace 120 mg one pill twice daily and Xarelto 20 mg one pill daily. Education on Betapace/Xarelto explained. Information will be provided. Education on Atrial fibrillation will also be provided. Follow up with Cardiology in 1-2 weeks to follow up on this hospitalization. Patient with Hyperlipidemia. He will continue with Lipitor 40 mg daily. Recommend to recheck Lab-Fasting lipids in 4-6 weeks to further address. Patient with GERD. He will continue with Protonix 40 mg daily. GERD information will be provided. Patient likely with Obstructive Sleep Apnea. Patient reports that he had a sleep study done recently. He does not know the results. Recommend follow up with PCP to follow up on recent Sleep Study. Patient with Tobacco and Alcohol history. Patient primarily dips tobacco. He does drink on a regular basis. Cessation education provided in detail. This was addressed by cardiology as well. Patient plans to quit both. Cessation education provided. 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 Recommend follow up with ENT as outpatient to follow up. Vital Signs/Physical Exam: Temp Pulse Resp BP Pulse Ox 98.2 F 71 18 121/86 97 03/15/19 16:00 03/16/19 06:28 03/16/19 06:28 03/16/19 06:28 03/16/19 06:28 General: Alert, In no apparent distress, Oriented x3, Cooperative HEENT: Atraumatic Neck: Supple Respiratory: Clear to auscultation bilaterally, Normal air movement Cardiovascular: Normal pulses, Regular rate/rhythm Gastrointestinal: Normal bowel sounds, Soft and benign, Non-distended, No tenderness, No masses, No rebound, No guarding Musculoskeletal: No contractures, No erythema, No tenderness, No warmth Integumentary: No tenderness/swelling, No erythema, No warmth, No cyanosis Neurological: Normal speech, Normal strength at 5/5 x4 extr, Normal tone, Normal affect Laboratory Data at Discharge: WBC 6.0 K/uL (4.3-10.9) 03/16/19 05:46 Hgb 14.4 g/dL (13.6-17.9) 03/16/19 05:46 Hct 42.6 % (39.6-49.0) 03/16/19 05:46 Plt Count 225 K/uL (152-406) 03/16/19 05:46 PT 12.4 SECONDS (9.5-12.5) 03/14/19 10:42 INR 1.05 03/14/19 10:42 Sodium 142 mmol/L (136-145) 03/16/19 05:46 Potassium 4.3 mmol/L (3.5-5.1) 03/16/19 05:46 BUN 9 mg/dL (7-18) 03/16/19 05:46 Creatinine 0.94 mg/dL (0.55-1.3) 03/16/19 05:46 Glucose 87 mg/dL (74-106) 03/16/19 05:46 Magnesium 2.6 mg/dL (1.8-2.4) H 03/16/19 05:46 Troponin I < 0.02 ng/mL (0.0-0.045) 03/15/19 05:07 Triglycerides 93 mg/dL (<150) 03/15/19 05:07 Cholesterol 119 mg/dL (<200) 03/15/19 05:07 HDL Cholesterol 48 mg/dL (40-60) 03/15/19 05:07 Cholesterol/HDL Ratio 2.48 03/15/19 05:07 Home Medications: Atorvastatin Calcium [Lipitor] 40 mg PO BEDTIME #30 tab 03/16/19 Pantoprazole [Protonix Tab*] 40 mg PO DAILYAC #30 tab 03/16/19 Rivaroxaban [Xarelto] 20 mg PO DAILY #30 tablet 03/16/19 Sotalol HCl [Betapace] 120 mg PO BID #60 tablet 03/16/19 New Medications: Atorvastatin Calcium [Lipitor] 40 mg PO BEDTIME #30 tab Pantoprazole [Protonix Tab*] 40 mg PO DAILYAC #30 tab Rivaroxaban [Xarelto] 20 mg PO DAILY #30 tablet Sotalol HCl [Betapace] 120 mg PO BID #60 tablet Patient Discharge Instructions: 1. Follow up with PCP in 1-2 weeks to follow up this hospitalization. 2. Patient presented with SOB/CP/Palpitations secondary to New Onset Atrial Fibrillation with RVR. Patient was seen and treated by Cardiology. ECHO/MRI Brain/MRA Brain/MRA Neck/CT chest Angiogram was unremarkable for CVA/PE. Patient now in normal sinus rythym. Discharge patient has done well. Patient without significant chest pain or shortness of breath. At Discharge, he will continue with Betapace 120 mg one pill twice daily and Xarelto 20 mg one pill daily. Education on Betapace/Xarelto explained. Information will be provided. Education on Atrial fibrillation will also be provided. Follow up with Cardiology in 1-2 weeks to follow up on this hospitalization. 3. Patient with Hyperlipidemia. He will continue with Lipitor 40 mg daily. Recommend to recheck Lab-Fasting lipids in 4-6 weeks to further address. 4. Patient with GERD. He will continue with Protonix 40 mg daily. GERD information will be provided. 5. Patient likely with Obstructive Sleep Apnea. Patient reports that he had a sleep study done recently. He does not know the results. Recommend follow up with PCP to follow up on recent Sleep Study. 6. Patient with Tobacco and Alcohol history. Patient primarily dips tobacco. He does drink on a regular basis. Cessation education provided in detail. This was addressed by cardiology as well. Patient plans to quit both. Cessation education provided. 7. 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 Recommend follow up with ENT as outpatient to follow up. Diet: AHA Activity: Ad jeremiah Followup: Nahun Ng MD [ACTIVE - CAN ADMIT] - Time spent managing pt's care (in minutes): 55
--- NOTE | 2019-03-16 13:20 | PN ---
Date of Progress Note: 03/16/2019 History Of Present Illness: Mr. Henriquez has been followed by us because of an acute new onset atrial f ibrillation that has been going on for about a month or 2. He was placed on Betapace 120 b.i.d. and was given some digoxin along the way. Echocardiogram yesterday was done, which was normal. He had a CT of his head, which was negative and CT of the chest which was negative. Finally, he converted to normal rhythm, has been normal rhythm now for about 13 hours. I suggest he goes home on Betapace 12 0 b.i.d. and Xarelto 20 mg daily. His echocardiogram was normal. I think he needs to have an outpat ient stress test. He was instructed not to drink any more alcohol if he can. We will see him in the office in the next 2 weeks. FOREST/LAURA Voice ID: [id number] Report ID: [id number]
== END 2019-03-16 10:20 | disposition home or self-care (01) | DRG 310 ==
LOC: ER 10:13 → ERHOLD 12:54 → 3RD-ICU 13:50 → 4TH 03-15 15:40
PROVIDERS: ADMIT Family Medicine; ATTEND Family Medicine
DX: I48.91 Unspecified atrial fibrillation (principal); R00.2 Palpitations; R20.0 Anesthesia of skin; K21.9 Gastro-esophageal reflux disease without esophagitis; Z72.89 Other problems related to lifestyle; G47.33 Obstructive sleep apnea (adult) (pediatric); E66.9 Obesity, unspecified; Z68.37 Body mass index [BMI] 37.0-37.9, adult; J34.1 Cyst and mucocele of nose and nasal sinus; Z98.84 Bariatric surgery status; F17.220 Nicotine dependence, chewing tobacco, uncomplicated
CPT/HCPCS: 36415; 70450; 70544; 70549; 70553; 71045; 71275; 80048; 80061; 82550; 82553; 83735; 83880; 84439; 84443; 84484; 85025; 85610; 93005; 93306; 93880; 96372; 96374; 96375; 99285; A9577; J1160; J1650; J2270; J2405; Q9967